=== PATIENT | female | born 1935 | race Caucasian/White ===

== ENCOUNTER 2017-06-03 18:13 | Emergency (ER) | payer OTHER ==
[2017-06-03 18:22] VITALS: BP 153/88; PULSE 97; TEMP 98.3; BMI 20.2
--- NOTE | 2017-06-03 18:22 | PDOC ---
Rapid Medical Evaluation Time Seen by Provider: 06/03/17 18:17 Medical Evaluation: 06/03/17 18:19 Pt here with c/o : low back pain, Hx compression fx l1-s1 and osteoporosis, on skelaxin Pt on exam: vss. Pt ordered for: lumbar xray Discharge Disposition - Diagnosis Low back pain - Referrals - Patient Instructions - Post Discharge Activity
--- NOTE | 2017-06-03 18:55 | PDOC ---
History of Present Illness - General Chief Complaint: Back Pain Stated Complaint: PAIN Time Seen by Provider: 06/03/17 18:17 - History of Present Illness Initial Comments: 06/03/17 22:36 pt. not seen by Ayla Mclaughlin in [facility] sent to main emergency room Past History - Past Medical History Allergies/Adverse Reactions: Allergies Allergy/AdvReac Type Severity Reaction Status Date / Time No Known Allergies Allergy Verified 06/03/17 18:17 Home Medications: Ambulatory Orders Simvastatin 5 mg PO ASDIR 06/03/17 COPD: No Other medical history: OP,OVARIAN CYST,BACK PROBLEMS - Suicide/Smoking/Psychosocial Hx Smoking History: Never smoked Have you smoked in the past 12 months: No Information on smoking cessation initiated: No Hx Alcohol Use: No Drug/Substance Use Hx: No Substance Use Type: None *Physical Exam - Vital Signs Last Vital Signs Temp Pulse Resp BP Pulse Ox 98.3 F 97 H 18 153/88 100 06/03/17 18:18 06/03/17 18:18 06/03/17 18:18 06/03/17 18:18 06/03/17 18:18 *DC/Admit/Observation/Transfer Diagnosis at time of Disposition: Low back pain - Discharge Dispostion Disposition: LEFT BEFORE SHLOMO FORD - Referrals Referrals: STAFF,NOT ON [Primary Care Provider] - - Patient Instructions - Post Discharge Activity
== END 2017-06-03 22:08 | disposition left against medical advice (07) ==
LOC: JERFT 18:13 → JER 18:13
DX: M54.5 Low back pain (principal)
CPT/HCPCS: 72100-TC; 99281-25